=== PATIENT | male | born 1970 | race Caucasian/White ===

== ENCOUNTER 2020-05-16 09:12 | Emergency (ER) | payer OTHER, SELFPAY ==
[2020-05-16 09:13] VITALS: BP 140/74; PULSE 73; RESP 18; TEMP 36.6; O2SAT 99; BMI 23.5
--- NOTE | 2020-05-16 09:33 | ED.VIS.GEN ---
History of Present Illness Chief Complaint: Wound Check Narrative: This patient is a 50-year-old male who presents with rectal bleeding. He noticed a hard painful lump earlier this week about 5 days ago. He notes that he sits and travels a lot. He does have a history of prior hemorrhoids. No prior surgeries. Yesterday while he was sitting he developed spontaneous bleeding enough that he saturated through his underwear and shorts. This happened again today enough that he bled through his were closed. He complains of pain but really only with palpation. No abdominal pain no fever no nausea vomiting or diarrhea. Past Medical History - Allergies and Home Meds Allergies/Adverse Reactions: Allergies No Known Allergies Allergy (Verified 05/16/20 09:15) Primary Care Physician: [facility],[place] [Primary Care Provider] - Past Medical History: None - Family History Maternal Family History: Reports: No pertinent history Paternal Family History: Reports: No pertinent history Review of Systems All systems negative except as indicated General: Denies: Fever Eyes: Denies: Visual changes - bilaterally ENT: Denies: Bilateral ear pain Cardiovascular: Denies: Chest pain Respiratory: Denies: Dyspnea Gastrointestinal: Reports: Hematochezia. Denies: Vomiting, Diarrhea Musculoskeletal: Denies: Myalgias, Arthralgias Skin: Denies: Rash Neurological: Denies: Headache Hematologic: Denies: Easy bruising Allergy: Denies: Uticaria Physical Exam Vital Signs/Narrative: Vital Signs Temp Pulse Resp BP Pulse Ox 05/16/20 09:13 97.9 F 73 18 140/74 H 99 Inital Vital Signs reviewed: Yes General: Well nourished Head: Normocephalic Eyes: EOMI ENT: Moist mucous membranes Neck: Supple Cardiovascular: Regular rate Respiratory: No distress Abdomen: Soft, Nontender, Nondistended Rectal: - - Patient appears to have a thrombosed external hemorrhoid which is exquisitely tender to the touch. He also has some bright red blood around the anus. Unable to tolerate rectal exam. Skin: Normal color Neurological: Alert Psychological: Normal affect Diagnostic/Tx/Re-eval - Medical Decision Making I spoke to Dr. Fox who is on-call for general surgery. He did send his physician offset assistant press operator who evaluated patient here in the emergency department. They did perform an I&D of the thrombosed hemorrhoid. Patient was given Zofran and Tiona here for pain and nausea as well as prescription for the same and he was told by general surgery to follow-up with Dr. Fox on Wednesday. Patient discharged. ED Disposition - Plan for ED Patient: Disposition: Home or Assisted Living Diagnosis: Thrombosed external hemorrhoid Instructions: Thrombosed Hemorrhoids Prescriptions: Hydrocodone Bitart/Apap 5-325 [Tiona 5MG-325MG] 1 tab PO Q6H PRN PRN 3 Days #12 tab PRN Reason: Pain Prescription Printed Ondansetron [Zofran Odt] 4 mg PO Q8H PRN PRN #10 tab PRN Reason: Nausea Prescription Printed [facility] [[facility] Provider] - Juan Fox MD [STAFF PHYSICIAN] -
--- NOTE | 2020-05-16 12:11 | PCM.HP.STD ---
Problem List (1) Thrombosed external hemorrhoid Status: Acute History of Present Illness Date of Admission: 05/16/20 Chief Complaint: Anal pain and bleeding The patient is a 50 year old M who presented with 4 day history of anal pain and bleeding. He noted on Wednesday that the hemorrhoid had drained blood. He performed a sitz bath with Epsom salts Wednesday evening and Wednesday he noted more bleeding. Patient denies previous thrombosed hemorrhoid. He denies history of constipation or diarrhea. He notes riding a motorcycle frequently. He denies trauma to the area. Past Medical History Allergies No Known Allergies Allergy (Verified 05/16/20 09:15) Home Medications: Ambulatory Orders Medication Instructions Recorded NK 05/16/20 Surgical History: noncontributory Psychiatric History: Anxiety Lives: Spouse/ Significant Other Smoking Status: Current every day smoker - *Family History Maternal History Items: No pertinent history Paternal History Items: No pertinent history Review of Systems Constitutional: Denies: Chills, Fever, Weight Change HEENT: Denies: Head Aches, Sinus Congestion, Sinus Drainage Cardiovascular: Denies: Chest Pain, Palpitations Respiratory: Denies: Cough, Shortness of breath at rest, Sputum production Gastrointestinal: Reports: Hematochezia. Denies: Abdominal Pain, Constipation, Diarrhea, Dyspepsia, Hematemesis, Nausea, Melena, Vomiting Genitourinary: Denies: Dysuria Musculoskeletal: Denies: Joint Pain, Joint Tenderness Skin: Denies: Rash, Wounds Neurological: Denies: Numbness, Tingling, Focal weakness Psychiatric: Denies: Anxiety, Depression, Homicidal Ideations, Suicidal Ideations Hematologic/ Lymphatic: Denies: Easy Bruising, Easy Bleeding VTE Information - Inpt Only VTE Present on Admission: No Objective: Procedure note Procedure: Incision and Drainage of thrombosed hemorrhoid Permit: Procedure, benefits, risks (include those of bleeding, infection, injury, anesthesia, and allergic reaction), and alternatives explained to the patient who voiced understanding of the information. Their questions were sought and answered. Patient agreed to proceed with the incision and drainage of thrombosed hemorrhoid. Indication: Thrombosed hemorrhoid Physician: Marti Posey PA-C Description: Area prepped with chlorhexidine and draped in a sterile fashion. Local anesthetic administered with 7 cc of 1% lidocaine. A linear incision was made and a moderate amount of clot was removed. Cavity was probed to remove any further clots. Surrounding area was cleansed with normal saline and gauze dressing and maxi pad was provided. Patient tolerated the procedure well. Complications: None Disposition: Patient alert and oriented. Patient tolerated the procedure well. - Physical Exam Vitals/I&O's: Vital Signs Temp Pulse Resp BP Pulse Ox 97.9 F 73 18 140/74 H 99 05/16/20 09:13 05/16/20 09:13 05/16/20 09:13 05/16/20 09:13 05/16/20 09:13 Oxygen Delivery Method Room Air Weight: 150 lb Body Mass Index (BMI) 23.5 General: Alert, Oriented x3, Cooperative HEENT: Atraumatic, PERRLA, EOMI, Normocephalic Neck: Supple, No JVD, Negative Carotid Bruits Lungs: Clear to auscultation, Normal air movement Cardiovascular: Regular rate, No murmurs Abdomen: Bowel Sounds Present, Soft, Non Tender Extremities: No edema, Capillary Refill Less than 3 Seconds Skin: - - Notable left lateral external thrombosed hemorrhoid Musculoskeletal: No Tenderness to Palpation of Joints or Extremities Neurological: Neuro grossly intact Psych/Mental Status: Normal Affect, Appropriate Assessment/Plan All Active Problems Thrombosed external hemorrhoid (Acute) Impression: Thrombosed hemorrhoid Plan: Incision and evacuation performed at bedside. Recommend sitz bathes twice daily with or without epsom salts. Recommend maxi pad for dressing and changing often for the next 24 hours. If pain resumes or a lump is felt again, patient is to contact our office for follow. Patient has had the opportunity to ask and have questions answered. Patient verbally understands and agrees with the plan. Patient may return to work tomorrow. Follow-up with our office on Wednesday via virtual visit. Thank you for allowing us to participate in this patient's care. Office Visits / Consults: [id number] OP Consult L2 - Thrombosed hemorrhoid procedure
--- NOTE | 2020-05-16 12:26 | DCINST_ITS ---
Discharge Diet: No Restrictions Discharge Activity: No Restrictions, May Drive, May Shower Call your doctor if your incision/area has: Increased Pain/ Swelling Cleanse incision/area with: Soap & Water Additional Instructions: Recommend sitz bathes twice a day for 10-15 minutes each time May take ibuprofen or tylenol as needed for pain/discomfort Recommend changing pads frequently May return to work tomorrow There is also a possibility that your hemorrhoid may return Recommend keeping stools nice and soft until hemorrhoid is healed Allergies/Adverse Reactions: Allergies No Known Allergies Allergy (Verified 05/16/20 09:15) Medications to take at Discharge NK 05/16/20 Primary Care Physician: [facility],[place] [Primary Care Provider] - Test Results: Test results from this visit will be discussed in further detail at your follow- up appointment, if applicable. Please Follow Up With: Marti Posey, DEMETRIS - [phone] When: Wednesday; please call for virtual visit Proposed Discharge Date: 05/16/20
[2020-05-16] MEDS: HYDROcodone Bitartrate/Apap 5/325 Tablet PO (13:08)
[2020-05-16] MEDS: Ondansetron ODT 4 MG Tablet PO (13:09)
[2020-05-16 13:13] VITALS: BP 158/64; PULSE 74; RESP 16; O2SAT 99
== END 2020-05-16 13:28 | disposition home or self-care (01) ==
PROVIDERS: Emergency Provider Emergency Medicine
DX: K64.5 Perianal venous thrombosis (principal)
CPT/HCPCS: 46083; 99281

== ENCOUNTER 2020-10-25 14:10 | Outpatient (RCR) | payer OTHER, SELFPAY | END 2020-12-31 23:59 | LOC: IMMUN 14:10 | PROVIDERS: Visit Provider Family Medicine | DX: Z23 Encounter for immunization (principal) | CPT/HCPCS: 0001A; 0002A; 91300 ==

== ENCOUNTER 2021-01-05 09:53 | Emergency (ER) | payer OTHER, SELFPAY ==
[2021-01-05 09:54] VITALS: BP 140/78; PULSE 70; RESP 18; TEMP 36.6; O2SAT 95; BMI 25.6
--- NOTE | 2021-01-05 10:32 | EX.ED.DYSGE1 ---
HPI History of Present Illness Chief Complaint: GI Bleed Informant: patient Narrative Narrative: Patient is a 50-year-old previously healthy male who presents to the emergency department for rectal bleeding. He has a history of hemorrhoids. He states he first noticed this 1 week ago. Started bleeding over the past 4 days. He was at an outside emergency department yesterday and prescribed Anusol and Colace. He has not filled this prescription yet. He states he has been using sitz bath as well as Preparation H which has not been giving significant relief. It is tender. He states he does a lot of sitting and traveling for work. He is supposed to leave tomorrow for another trip. He denies any symptoms of anemia including any lightheadedness, chest pain, shortness of breath. No exertional dyspnea. He denies any fevers or chills. No abdominal pain. Denies straining to have bowel movements. Prior similar symptoms: Yes PFSH PFSH Home Medications ondansetron 4 mg PO Q8H PRN PRN #10 tab 05/16/20 [Rx Last Taken Unknown] Allergy/AdvReac Type Severity Reaction Status Date / Time No Known Allergies Allergy Verified 01/05/21 09:54 Social History Smoking Status: Current every day smoker tobacco type: cigarettes ROS ROS ED Constitutional Constitutional ED: Denies chills or fever(s) Eyes Eyes: Denies change in vision ENT ENT ED: Denies epistaxis or rhinorrhea Cardiovascular Cardiovascular: Denies chest pain or palpitations Respiratory/Chest Respiratory/Chest: Denies cough, dyspnea or dyspnea on exertion Gastrointestinal Gastrointestinal: Reports hemorrhoids; Denies abdominal pain, diarrhea, melena, nausea or vomiting Genitourinary Genitourinary ED: Denies dysuria, hematuria or urinary frequency Musculoskeletal Musculoskeletal: Denies back pain or neck pain Neurologic Neurologic: Denies dizziness, headache(s) or weakness EXAM Physical Exam Const Vital Signs: 01/05/21 09:54 Temperature 97.8 F Temperature Source Temporal Pulse Rate 70 Respiratory Rate 18 Blood Pressure 140/78 H Blood Pressure Mean 98 Pulse Ox 95 Oxygen Delivery Method Room Air Positive well nourished and well developed General Appearance ED: well developed and NAD HEENT Reports normocephalic, head/scalp atraumatic and moist mucous membranes Eyes PERRL and EOMs intact bilaterally Neck no lymphadenopathy and supple General: Negative for tenderness Chest Wall inspection of chest normal Resp normal respiratory effort and clear to auscultation bilaterally Auscultation: Negative for rales, rhonchi or wheezes Cardio regular rate, regular rhythm and no murmurs GI normal to inspection, nondistended, normoactive bowel sounds and non-tender GI Narrative: External hemorrhoid present. There is some blood present but no active bleeding. Does appear to be partially thrombosed but not significantly engorged and swollen. No overlying skin changes. Palpation: soft; Negative for guarding or rebound tenderness present Back/Spine no CVA tenderness Extremity normal to inspection General Extremety ED: Negative for edema or tenderness General Extremity: Negative for edema Neuro no sensory deficits noted Sensorium / Orientation: alert Motor Exam: strength 5/5 throughout Psych mental status grossly normal Skin no rashes or lesions noted MDM MDM MDM Narrative Medical decision making narrative: Patient presents to the ED for rectal bleeding. He does have a hemorrhoid on exam. He has had this issue before in the past. He was seen at outside ED and prescribed Anusol. I did advise for him to start using this as well as the Colace. He was given referral for surgery. Patient otherwise denies any symptoms of anemia. At this time I do not think I&D would be beneficial here in the emergency department. We will have him follow-up with the surgeon. Return precautions are reviewed. He understands and is agreeable this plan. Discharged home in stable condition. Return precautions reviewed. Discharge Plan Triage Chief Complaint: GI Bleed ED Provider: Antonio Anton Dx/Rx/DC Orders Clinical Impression: Hemorrhoids Instructions: ED Hemorrhoids Prescriptions: No Action ondansetron 4 MG tablet 4 mg PO Q8H PRN PRN (Reason: Nausea) Qty: 10 RF: 0 [facility] [[facility]] - Activity Restrictions/Additional Instructions: Please follow-up with the general surgeon that you were referred to from [place]. Disposition Disposition: Home, self care
== END 2021-01-05 10:46 | disposition home or self-care (01) ==
LOC: ED 10:43
PROVIDERS: Emergency Provider Emergency Medicine
DX: K64.9 Unspecified hemorrhoids (principal); F17.210 Nicotine dependence, cigarettes, uncomplicated
CPT/HCPCS: 99282

== ENCOUNTER 2021-02-22 20:44 | Emergency (ER) | payer OTHER, SELFPAY ==
[2021-02-22 20:45] VITALS: BP 120/79; PULSE 68; RESP 15; TEMP 36.3; O2SAT 98; BMI 25.6
[2021-02-22] MEDS: Lidocaine 1% (20 ml mdv) 20 ML Vial INFILT (21:10)
--- NOTE | 2021-02-22 21:22 | EX.ED.DYSGE1 ---
HPI History of Present Illness Chief Complaint: Abscess Informant: patient Narrative Narrative: 51-year-old male presents for the evaluation of a infected cyst. He notes it behind the left ear. He has had this before and 15 years ago it needed to be drained. He had a body from [employer] drain it for him. He states there is been a hard circular knot there since then but it recently started swelling and is causing pain. PFSH PFSH Home Medications ondansetron 4 mg PO Q8H PRN PRN #10 tab 05/16/20 [Rx Last Taken Unknown] cephalexin 500 mg PO Q6 #28 capsule 02/22/21 [Rx Last Taken Unknown] Allergy/AdvReac Type Severity Reaction Status Date / Time No Known Allergies Allergy Verified 02/22/21 20:49 Social History (Updated 02/22/21 @ 21:[address] Juan Priest, DO) Smoking Status: Current every day smoker tobacco type: cigarettes substance use type: does not use ROS ROS ED Constitutional Constitutional ED: Denies chills or weight loss Eyes Eyes: Denies change in vision or diplopia ENT ENT ED: Denies ear pain, rhinorrhea or sore throat Cardiovascular Cardiovascular: Denies chest pain, orthopnea, palpitations or racing heartbeat Respiratory/Chest Respiratory/Chest: Denies cough, dyspnea or orthopnea Gastrointestinal Gastrointestinal: Denies abdominal pain, diarrhea, nausea or vomiting Genitourinary Genitourinary ED: Denies dysuria, hematuria or urinary frequency Musculoskeletal Musculoskeletal: Denies arthralgias or myalgias Integumentary Reports abscess; Denies rash Neurologic Neurologic: Denies headache(s) or weakness Psychiatric Psychiatric: Denies anxiety, depression, suicidal ideation or suicidal thoughts Endocrine Endocrinology: Denies polydipsia, polyphagia or polyuria Allergic/Immunologic Allergic/Immunologic ED: Denies mouth swelling, tongue swelling or urticaria EXAM Physical Exam Const Vital Signs: 02/22/21 20:45 Temperature 97.4 F L Temperature Source Temporal Pulse Rate 68 Respiratory Rate 15 Blood Pressure 120/79 Blood Pressure Mean 92 Pulse Ox 98 Oxygen Delivery Method Room Air Positive well nourished and well developed General Appearance ED: well developed HEENT Reports normocephalic, head/scalp atraumatic and moist mucous membranes HEENT Narrative: There appears to be an infected sebaceous cyst posterior auricular area. This measures about 1 cm x 1 cm Eyes PERRL and EOMs intact bilaterally Neck no lymphadenopathy, supple and no JVD Resp normal respiratory effort and clear to auscultation bilaterally Cardio regular rate, regular rhythm and no murmurs GI normal to inspection, nondistended, normoactive bowel sounds and non-tender Palpation: soft Back/Spine no CVA tenderness and normal ROM Extremity normal to inspection General Extremety ED: Negative for edema General Extremity: Negative for edema Neuro oriented x3 and CN's II-XII intact bilaterally Sensorium / Orientation: alert Motor Exam: strength 5/5 throughout Psych mental status grossly normal Mood & Affect: Negative for depressed or tearful Skin no rashes or lesions noted and no wounds MDM MDM MDM Narrative Medical decision making narrative: The cyst was locally anesthetized using 1% lidocaine. A cruciate incision was made. This was able to express a significant amount of thick purulence. Due to the size of it and the lack of depth there is not really a way to pack it successfully. He will be started on Keflex. Patient was advised that when his symptoms have resolved and if he feels this small cyst present before becomes infected again he may talk with surgery about having it removed Discharge Plan Triage Chief Complaint: Abscess ED Provider: Juan Priest Dx/Rx/DC Orders Clinical Impression: Infected sebaceous cyst Instructions: Epidermoid Cyst Infect I and D Prescriptions: New cephalexin [cephalexin] 500 MG capsule 500 mg PO Q6 Qty: 28 RF: 0 No Action ondansetron 4 MG tablet 4 mg PO Q8H PRN PRN (Reason: Nausea) Qty: 10 RF: 0 [facility] Care Provider: [facility] Referrals: Jairo Owen MD [STAFF PHYSICIAN] - As Needed [facility] [Primary Care Provider] - Disposition Disposition: Home, Self Care
[2021-02-22] MEDS: Cephalexin 250 MG Capsule 500 MG PO (21:44)
== END 2021-02-22 21:50 | disposition home or self-care (01) ==
PROVIDERS: Emergency Provider Emergency Medicine
DX: L72.3 Sebaceous cyst (principal); L08.9 Local infection of the skin and subcutaneous tissue, unspecified; F17.210 Nicotine dependence, cigarettes, uncomplicated
CPT/HCPCS: 10060; 99283

== ENCOUNTER → 2022-01-20 | Outpatient (CLI) | payer OTHER, SELFPAY ==
--- NOTE | 2022-01-20 06:42 | EKG12_ITS ---
Test Reason : SOB,ISCHEMIC DISEASE Blood Pressure : / mmHG Vent. Rate : 061 BPM Atrial Rate : 061 BPM P-R Int : 148 ms QRS Dur : 090 ms QT Int : 408 ms P-R-T Axes : 054 046 055 degrees QTc Int : 410 ms Normal sinus rhythm Normal ECG Confirmed by STEVAN WATERS, CHUCHO ([id number]), editor at large RENATA HAMM ([id number]) on 01/21/2022 8:51:42 AM Referred By: WILVER EDWARD Confirmed By:CHUCHO CALLES MD
--- NOTE | 2022-01-21 09:59 | PFT ---
INTRODUCTION: The patient is a 51-year-old male that presents for pulmonary function studies secondary to a diagnosis of shortness of breath. Respiratory therapy reported good patient effort. Bronchodilators were used during testing. INTERPRETATION: Forced expiration spirometry demonstrates no evidence of a large airways obstructive ventilatory defect. There was no significant response to aerosolized bronchodilators. Spirograms are of good quality and plateau normally. Body plethysmography was performed and reveals lung volumes to be within normal limits. Diffusing capacity by single breath CO is also within normal limits. IMPRESSION: Grossly normal pulmonary function studies.
== END | disposition home or self-care (01) ==
LOC: PSN 06:36
DX: I25.9 Chronic ischemic heart disease, unspecified (principal); R06.02 Shortness of breath
CPT/HCPCS: 93005; 94060; 94726; 94729

== ENCOUNTER → 2022-01-22 | Outpatient (CLI) | payer OTHER, SELFPAY ==
--- NOTE | 2022-01-22 07:23 | ECHOD_ITS ---
Reason For Study: SOB Procedure This was a 2D Doppler, Color Flow transthoracic echocardiogram. The exam was of adequate technical quality. Exam performed in department. Left Ventricle Normal LV size. Left ventricular systolic function is normal. The estimated ejection fraction is 70 %. No evidence for diastolic dysfunction. No regional wall motion abnormalities noted. Right Ventricle Normal RV size. Normal systolic function. Atria Normal left atrium. Normal right atrium. No doppler evidence for ASD. Mitral Valve There is no mitral annular calcification. Normal mitral valve. Trivial mitral valve insufficiency. Tricuspid Valve Normal tricuspid valve. Trivial tricuspid valve insufficiency. Unable to estimate RV systolic pressure due to insufficient tricuspid regurgitant envelope. Aortic Valve Trisinus/trileaflet aortic valve. Mild focal aortic valve calcification. Pulmonic Valve The pulmonic valve is not well visualized. Trivial pulmonic valve insufficiency. Great Vessels Normal sized aortic root. Pericardium/Pleural No pericardial effusion. MMode/2D Measurements & Calculations LVIDd: 4.6 cm IVSd: 1.1 cm Ao root diam: 2.5 cm LVIDs: 2.8 cm LVPWd: 1.2 cm RVDd: 2.5 cm FS: 38.6 % LAV(MOD-sp4): 26.9 ml LVAd ap4: 25.6 cm2 SV(MOD-sp4): 48.6 ml LVLd ap4: 8.1 cm EDV(MOD-sp4): 67.1 ml EDV(sp4-el): 68.2 ml LVAs ap4: 10.9 cm2 LVLs ap4: 6.0 cm ESV(MOD-sp4): 18.5 ml ESV(sp4-el): 16.8 ml EF(MOD-sp4): 72.4 % EF(sp4-el): 75.4 % SV(sp4-el): 51.4 ml LA A4 area: 12.7 cm2 LA dimension(2D): 3.1 cm RA A4 area: 12.9 cm2 Doppler Measurements & Calculations MV E max jorge: 66.3 cm/sec Lat Peak E' Jorge: 11.9 cm/sec Med Peak E' Jorge: 7.6 cm/sec MV A max jorge: 50.1 cm/sec E/E' lat: 5.6 E/E' med: 8.7 MV E/A: 1.3 Ao V2 max: 135.1 cm/sec LV V1 max: 113.8 cm/sec PA V2 max: 114.6 cm/sec Ao max P.3 mmHg LV V1 max P.2 mmHg ECHO/Echo Complete Interpretation Summary Left ventricular systolic function is normal. The estimated ejection fraction is 70 %. Trivial mitral valve insufficiency. Trivial tricuspid valve insufficiency. Mild focal aortic valve calcification. Trivial pulmonic valve insufficiency. Unable to estimate RV systolic pressure due to insufficient tricuspid regurgita nt envelope. No evidence for diastolic dysfunction. Ordering Physician: WILVER EDWARD Referring Physician: WILVER EDWARD Performed By: Shelley Redmond RCS
== END | disposition home or self-care (01) ==
LOC: CVS 07:19
DX: R06.02 Shortness of breath (principal); I25.9 Chronic ischemic heart disease, unspecified
CPT/HCPCS: 93306

== ENCOUNTER 2023-11-24 10:55 | Emergency (ER) | payer OTHER, SELFPAY ==
[2023-11-24 10:55] VITALS: BP 149/85; PULSE 70; RESP 18; TEMP 36.6; O2SAT 98; BMI 27.3
--- NOTE | 2023-11-24 11:15 | EDS_ITS ---
HPI History of Present Illness Chief Complaint: Shortness of Breath [facility] Medical History (Updated 11/24/23 @ 11:53 by Yanni Liu) Anxiety Hyperlipemia Home Medications ondansetron 4 mg disintegrating tablet 4 mg PO Q8H PRN PRN Nausea #10 tabs 05/16/20 [Rx Last Taken Unknown] cephalexin 500 mg capsule 500 mg PO Q6 #28 CAPSULES 02/22/21 [Rx Last Taken Unknown] Allergy/AdvReac Type Severity Reaction Status Date / Time No Known Allergies Allergy Verified 11/24/23 10:58 Family History (Updated 11/24/23 @ 11:54 by Yanni Liu) Mother Heart disease Social History (Updated 11/24/23 @ 11:54 by Yanni Liu) household members: family housing: house current occupational status: employed Smoking Status: Current every day smoker tobacco type: cigarettes substance use type: does not use EXAM Physical Exam Const Vital Signs: 11/24/23 10:55 11/24/23 11:55 Temperature 97.8 F Temperature Source Temporal Pulse Rate 70 Respiratory Rate 18 Respiratory Effort Normal Non-Labored Respiratory Pattern Normal Blood Pressure 149/85 H Blood Pressure Mean 106 Pulse Ox 98 Oxygen Delivery Method Room Air [facility] Lab Data Labs: Laboratory Results - last 24 hr 11/24/23 12:05 WBC 9.6 RBC 5.47 Hgb 16.2 Hct 47.8 MCV 87.4 MCH 29.6 MCHC 33.9 RDW Std Deviation 40.1 RDW Coeff of Vane 12.6 Plt Count 258 MPV 9.1 Immature Gran % (Auto) 0.500 Neut % (Auto) 71.8 H Lymph % (Auto) 22.1 [place] % (Auto) 5.1 Eos % (Auto) 0.2 Baso % (Auto) 0.3 Absolute Neuts (auto) 6.9 Absolute Lymphs (auto) 2.11 Nucleated RBC % 0 D-Dimer Quant (PE/DVT) < 0.27 L EKG Initial EKG: Attestation: I personally reviewed and interpreted this EKG as follows: Interpretation: Sinus Rhythm (With occasional PACs with a rate of 61) and No Acute Injury Pattern Comments: EKG was obtained. On my independent interpretation, it showed a normal sinus rhythm with occasional PACs with a rate of 61. [place] interval, QRS interval, and QTc intervals were all normal. [place] was normal. There are no acute ST or T wave changes. Prior EKG tracings: available for review Prior: Unchanged (01/20/2022.) Discharge Plan Triage Chief Complaint: Shortness of Breath ED Provider: Thompson Nino Dx/Rx/DC Orders Prescriptions: No Action ondansetron 4 MG tablet 4 mg PO Q8H PRN PRN (Reason: Nausea) Qty: 10 0RF cephalexin [cephalexin] 500 MG capsule 500 mg PO Q6 Qty: 28 0RF Primary Care Provider: Ji Ellison Took Referrals: [facility] [STAFF PHYSICIAN] -
--- NOTE | 2023-11-24 11:15 | ED.VIS.DYS ---
HPI History of Present Illness Chief Complaint: Shortness of Breath Informant: patient Onset/Context/Timing Onset: Days (5) Context: sudden Timing: Intermittent Quality: Positive for Dyspnea on exertion Worsened by: Exertion Relieved by: Nothing Associated Symptoms cough and post nasal drip; Negative for rhinorrhea, ear pain, fever, sore throat, chills, sweats, clear sputum, white sputum, yellow sputum or green sputum Chest Pain: Positive for Tightness Narrative Narrative: Patient presents with shortness of breath that has been getting worse over the past 5 days. Patient states it is worse with any exertion. Patient states it is better when he is able to sit up. Patient states he has been having some postnasal drainage. Patient admits to a cough but denies any sputum production. Patient denies any fevers or chills. Patient states he also has some tightness through his chest. Patient denies any sick contacts. Patient denies any nausea or vomiting. PE Risk Factors: Negative for Cancer, OCP + Smoking + > 35, Prior DVT or PE, Recent immobilization, Recent surgery or Recent travel [facility] Medical History (Updated 11/24/23 @ 14:[address] Thompson Nino DO) Anxiety Hyperlipemia Allergy/AdvReac Type Severity Reaction Status Date / Time No Known Allergies Allergy Verified 11/24/23 10:58 Family History (Updated 11/24/23 @ 11:54 by Yanni Liu) Mother Heart disease Surgical History (Updated 11/24/23 @ 14:[address] Thompson Nino DO) Hx of repair of rotator cuff Social History household members: family housing: house current occupational status: employed Smoking Status: Current every day smoker tobacco type: cigarettes substance use type: does not use ROS ROS ED Constitutional Constitutional ED: Denies chills or fever(s) Eyes Eyes: Denies blurry vision or change in vision ENT ENT ED: Denies rhinorrhea or sore throat Cardiovascular Cardiovascular: Reports chest pain; Denies palpitations Respiratory/Chest Respiratory/Chest: Reports dyspnea; Denies cough Gastrointestinal Gastrointestinal: Denies nausea or vomiting Genitourinary Genitourinary ED: Denies dysuria or hematuria Musculoskeletal Musculoskeletal: Reports back pain and neck pain Integumentary Denies abscess or rash Neurologic Neurologic: Denies headache(s) or weakness Allergic/Immunologic Allergic/Immunologic ED: Denies mouth swelling or urticaria EXAM Physical Exam Const Vital Signs: 11/24/23 10:55 11/24/23 11:55 Temperature 97.8 F Temperature Source Temporal Pulse Rate 70 Respiratory Rate 18 Respiratory Effort Normal Non-Labored Respiratory Pattern Normal Blood Pressure 149/85 H Blood Pressure Mean 106 Pulse Ox 98 Oxygen Delivery Method Room Air Positive well nourished and well developed General Appearance ED: well developed and NAD HEENT Reports moist mucous membranes Neck supple and no JVD Resp normal respiratory effort and clear to auscultation bilaterally Cardio regular rate and regular rhythm GI non-tender and non-distended Palpation: soft Extremity normal to inspection General Extremety ED: Negative for edema or tenderness General Extremity: Negative for edema Neuro oriented x3, CN's II-XII intact bilaterally and no sensory deficits noted [place] Com[place] Scale: document GCS findings Spontaneous Obeys Commands Oriented 15 Sensorium / Orientation: alert Speech: speech normal Motor Exam: strength 5/5 throughout Psych mental status grossly normal Skin no wounds MDM MDM MDM Narrative Medical decision making narrative: Differential diagnosis includes pulmonary embolism, pneumonia, viral illness, cardiac dysrhythmia, cardiac ischemia, and anxiety. EKG will be obtained to assess for cardiac dysrhythmia and cardiac ischemia. CBC will be obtained to assess for leukocytosis and anemia. Basic metabolic profile will be obtained to assess for electrolyte abnormality and renal function. D-dimer will be obtained to assess for pulmonary embolism. COVID-19, influenza, and RSV PCR will be obtained to assess for viral illness. Chest x-ray will be obtained to assess for pneumonia. Lab Data Attestation: I reviewed the patient's lab results. Lab results narrative: CBC was reviewed and was within normal limits. Basic metabolic profile was reviewed and was within normal limits with the exception of an elevated glucose of 203. D-dimer was reviewed and was normal at less than 0.27. High-sensitivity troponin was reviewed and was normal at 9. Labs: Laboratory Results - last 24 hr 11/24/23 12:05 WBC 9.6 RBC 5.47 Hgb 16.2 Hct 47.8 MCV 87.4 MCH 29.6 MCHC 33.9 RDW Std Deviation 40.1 RDW Coeff of Vane 12.6 Plt Count 258 MPV 9.1 Immature Gran % (Auto) 0.500 Neut % (Auto) 71.8 H Lymph % (Auto) 22.1 Major % (Auto) 5.1 Eos % (Auto) 0.2 Baso % (Auto) 0.3 Absolute Neuts (auto) 6.9 Absolute Lymphs (auto) 2.11 Nucleated RBC % 0 D-Dimer Quant (PE/DVT) < 0.27 L Radiography Chest X-Ray - ED: 2 View, Read by ED Physician, Read by Radiologist and No Acute Disease Diagnostic Testing: PA and lateral chest x-ray was obtained. There are 2 views. On my independent interpretation, lung [place] are clear. There is normal cardiac silhouette. Bony thorax is normal. There is no acute process noted. Radiologist also interpreted the x-ray and agrees. EKG Initial EKG: Attestation: I personally reviewed and interpreted this EKG as follows: Interpretation: Sinus Rhythm (With occasional PACs with a rate of 61) and No Acute Injury Pattern Comments: EKG was obtained. On my independent interpretation, it showed a normal sinus rhythm with occasional PACs with a rate of 61. MS interval, QRS interval, and QTc intervals were all normal. [place] was normal. There are no acute ST or T wave changes. Prior EKG tracings: available for review Prior: Unchanged (01/20/2022.) Treatment and Re-Evaluation :: Patient was advised of his findings. Patient was resting comfortably on reevaluation. Patient was instructed to follow-up with his primary care physician in 5 to 7 days for further evaluation. Patient was instructed to return if worse in any way. Patient understood and was agreeable with the plan. All questions were answered. Discharge Plan Triage Chief Complaint: Shortness of Breath ED Provider: Thompson Nino Dx/Rx/DC Orders Clinical Impression: Dyspnea, Hyperglycemia Instructions: ED Dyspnea, ED Hyperglycemia New Poss Diabetes Primary Care Provider: Ji Ellison [facility]errals[facility] [[facility]FF [facility]YSICIAN] - 5-7 Days Activity Restrictions/Additional Instructions: Your blood sugar today was elevated at 203. Continue to monitor this with your primary care physician. This could indicate new onset diabetes. Disposition Disposition: Home, Self Care
--- NOTE | 2023-11-24 11:49 | EKG12_ITS ---
Test Reason : SOB/CP Blood Pressure : / mmHG Vent. Rate : 061 BPM Atrial Rate : 061 BPM P-R Int : 128 ms QRS Dur : 086 ms QT Int : 412 ms P-R-T Axes : 048 031 061 degrees QTc Int : 414 ms Sinus rhythm with Premature atrial complexes Otherwise normal ECG Confirmed by MAGNUS WATERS, LILI ([id number]), associate entertainment editor NORRIS CARREON ([id number]) on 11/25/2023 11:34:11 AM Referred By: ES/ Confirmed By:LILI AGUDELO MD
[2023-11-24 11:55] VITALS: O2SAT 98
[2023-11-24 12:21] LABS: Absolute Lymphocyte Count 2.11 X10^3/uL (0.83-4.51); Absolute Neutrophil Count 6.9 X10^3/uL (2.0-7.7); Basophil# 0.03 X10^3/uL; Basophil% 0.3 % (0-1); Eosinophil# 0.02 X10^3/uL; Eosinophils% 0.2 % (0-5); Hematocrit 47.8 % (40-54); Hemoglobin 16.2 g/dL (13.0-16.5); Lymphocyte # 2.11 X10^3/ul (0.83-4.51); Lymphocyte % 22.1 % (19-41); Mean Corp Hgb Conc 33.9 g/dL (32-36); Mean Corpuscular Hgb 29.6 pg (27.0-32.0); Mean Corpuscular Volume 87.4 fL (80-94); Mean Platelet Vol. 9.1 fl (6.2-12.0); Monocyte# 0.49 X10^3/uL; Monocyte% 5.1 % (0-10); NRBC Flagged by Analyzer 0 % (0-5); Neutrophil # 6.86 X10^3/uL (2.7-7.7); Neutrophil % 71.8 % (47-70); Platelet Count 258 K/mm3 (150-450); RBC Distribution Width CV 12.6 % (11.6-14.6); RBC Distribution Width SD 40.1 fl (35.1-43.9); Red Blood Count 5.47 M/mm3 (4.6-6.2); White Blood Count 9.6 K/mm3 (4.4-11.0)
[2023-11-24 12:34] LABS: D-Dimer Quantitative (DVT/PE) < 0.27 FEU/ug/m (0.27-0.49)
[2023-11-24 12:55] VITALS: BP 117/74; PULSE 56; RESP 22
[2023-11-24 12:55] LABS: Anion Gap 5 (5-15); BUN 16 mg/dL (7-18); BUN/Creat Ratio 13.8 RATIO (10-20); Calcium,Total 8.9 mg/dL (8.5-10.1); Chloride 106 mmol/L (98-107); Creatinine, Serum 1.16 mg/dL (0.70-1.30); EST Glomerular Filtration Rate 70 mL/min (>60); Est Glom Filt Rate - Afr Amer 85 mL/min (>60); Estimated Creatinine Clearance 70.44 ml/min; Glucose 203 mg/dL (74-106); Potassium 3.9 mmol/L (3.5-5.1); Sodium Level 139 mmol/L (136-145); Troponin-I HS 9 pg/mL (3.0-78.0)
--- NOTE | 2023-11-24 13:10 | RAD_ITS ---
STUDY: X-RAY CHEST REASON FOR EXAM: Male, 53 years old. Dyspnea. TECHNIQUE: Frontal and lateral views of the chest. COMPARISON: None. FINDINGS: The lungs are clear and expanded. There is no demonstrated pleural abnormality. Normal size heart. Normal mediastinum and amanda. Normal visualized pulmonary arteries. Normal visualized aortic arch and descending thoracic aorta. Normal visualized thoracic spine. Normal visualized ribs, clavicles, and shoulders. No abnormality of the visualized soft tissue structures of the upper abdomen. RAD/Chest PA and Lateral IMPRESSION: Normal x-ray examination of the chest. Electronically Signed: Jose Love MD at 13:51 EDT ,
[2023-11-24 14:00] VITALS: BP 120/71; PULSE 58; RESP 18; O2SAT 97
[2023-11-24 15:17] VITALS: BP 129/84; PULSE 54; RESP 18; TEMP 36.5; O2SAT 97
== END 2023-11-24 15:18 | disposition home or self-care (01) ==
PROVIDERS: Emergency Provider Emergency Medicine; PCP Nurse Practitioner; Visit Provider Emergency Medicine
DX: R06.02 Shortness of breath (principal); R73.9 Hyperglycemia, unspecified; F17.210 Nicotine dependence, cigarettes, uncomplicated; E78.5 Hyperlipidemia, unspecified; R07.9 Chest pain, unspecified
CPT/HCPCS: 71046; 80048; 84484; 85025; 85379; 87631; 93005; 99284

== ENCOUNTER 2025-07-15 21:19 | Emergency (ER) | payer OTHER, SELFPAY ==
[2025-07-15 21:20] VITALS: BP 154/80; PULSE 67; RESP 18; TEMP 36.7; O2SAT 100; BMI 27.8
--- NOTE | 2025-07-15 21:31 | EKG12_ITS ---
Test Reason : CP Blood Pressure : */* mmHG Vent. Rate : 65 BPM Atrial Rate : 65 BPM P-R Int : 150 ms QRS Dur : 86 ms QT Int : 392 ms P-R-T Axes : 54 41 84 degrees QTcB Int : 407 ms Normal sinus rhythm Possible Inferior infarct , age undetermined Abnormal ECG Confirmed by Tremaine Negrete (Luli), map editor MARS LEUNG ([id number]) on 07/17/2025 11:26:38 AM Also confirmed by Tremaine Negrete ([id number]), map editor MARS LEUNG ([id number]) on 07/18/2025 10:53:19 AM Referred By: AUGUSTUS Confirmed By: Tremaine Negrete
--- NOTE | 2025-07-15 21:32 | ED.VIS.CHEST ---
HPI History of Present Illness Chief Complaint: Chest Pain Detail of Chief Complaint: Chest pain Informant: patient Narrative Narrative: Patient presents to the emergency department with complaint of chest pain that he has had for about a week off-and-on. Describes a dull ache in the left chest that does not seem to be exertional. Relatively continuously since around 540 this morning. No significant radiation of the pain into the arm or the neck or to the jaw. At times with standing he will feel lightheaded. [place] somewhat sweaty yesterday. Patient has no heart history. His mother had triple bypass surgery recently in her 80s. Patient is a smoker but quitting down to 3 cigarettes a day. Denies illicit drug use. Had surgery on his right shoulder in April. No recent travel. Increased stressors at home as they are currently buying a home and he has been under a lot of stress. Does have history of anxiety. Patient called the [facility] and was advised to come to the emergency department. [facility] Medical History (Updated 07/15/25 @ 22:[address] Latonya Acosta, DO) Hyperlipemia Anxiety Home Medications ?Medication ?Instructions ?Recorded ?Last Taken ?Type aspirin 81 mg capsule 81 mg PO DAILY 07/15/25 07/15/25 History fluoxetine 20 mg capsule 20 mg PO DAILY 07/15/25 07/14/25 History lorazepam 1 mg tablet (Ativan) 1 mg PO TID PRN anxiety #10 tabs 07/15/25 Unknown Rx pantoprazole 20 mg tablet,delayed 20 mg PO DAILY 07/15/25 07/14/25 History release rosuvastatin 20 mg tablet (Crestor) 20 mg PO DAILY 07/15/25 07/14/25 History Allergy/AdvReac Type Severity Reaction Status Date / Time No Known Allergies Allergy Verified 07/15/25 21:20 Family History Mother Heart disease Surgical History Hx of repair of rotator cuff Social History household members: family housing: house current occupational status: employed Smoking Status: Current every day smoker tobacco type: cigarettes substance use type: does not use ROS ROS ED Review of Systems ROS Unobtainable: other Constitutional Constitutional ED: Reports lethargy; Denies chills, fever(s), sweats or weight loss Eyes Eyes: Denies blurry vision, change in vision or diplopia ENT ENT ED: Denies rhinorrhea or sore throat Cardiovascular Cardiovascular: Reports chest pain; Denies orthopnea or racing heartbeat Respiratory/Chest Respiratory/Chest: Reports dyspnea; Denies cough, dyspnea on exertion, orthopnea or sputum Gastrointestinal Gastrointestinal: Denies abdominal pain, diarrhea, nausea or vomiting Genitourinary Genitourinary ED: Denies dysuria, hematuria or urinary frequency Musculoskeletal Musculoskeletal: Denies arthralgias, back pain, myalgias or neck pain Integumentary Denies abscess, Abrasions or rash Neurologic Neurologic: Denies headache(s) or weakness Psychiatric Psychiatric: Denies anxiety, depression or suicidal thoughts Endocrine Endocrinology: Denies polydipsia, polyphagia or polyuria Hematologic/Lymphatic Hematologic/Lymphatic: Denies easy bleeding, easy bruising or lymphadenopathy Allergic/Immunologic Allergic/Immunologic ED: Denies mouth swelling, tongue swelling or urticaria EXAM Physical Exam Const Vital Signs: 07/15/25 21:20 07/15/25 21:27 07/15/25 21:39 Temperature 98.1 F Temperature Source Oral Pulse Rate 67 Respiratory Rate 18 Respiratory Effort Normal Non-Labored Blood Pressure 154/80 H Blood Pressure Mean 104 Pulse Ox 100 Oxygen Delivery Method Room Air Positive well nourished and well developed General Appearance ED: well developed and NAD HEENT Reports TM's clear and moist mucous membranes normocephalic and atraumatic; Negative for trauma or tenderness Tympanic Membrane ED: Yes TM's clear Eyes PERRL and EOMs intact bilaterally General Eye ED: Negative for pale conjunctiva or scleral icterus Neck no lymphadenopathy, supple and no JVD General: Negative for tenderness Chest Wall inspection of chest normal and palpation of chest normal Chest: Negative for tenderness Resp normal respiratory effort and clear to auscultation bilaterally Effort and Inspection: Negative for respiratory distress or pain with movement Auscultation: Negative for rhonchi, wheezes or diminished lung sounds Cardio regular rate, regular rhythm, S1 normal heart sound, S2 normal heart sound and no murmurs Peripheral Pulses: pulses 2+ throughout GI normal to inspection, nondistended, normoactive bowel sounds, soft to palpation, non-tender, non-distended and no masses Back/Spine no CVA tenderness and no thoracic nor lumbar tenderness Extremity normal to inspection General Extremety ED: Negative for edema General Extremity: Negative for edema Neuro oriented x3, CN's II-XII intact bilaterally, no sensory deficits noted and gait normal Sensorium / Orientation: awake, alert, oriented to person, oriented to place and oriented to time Motor Exam: strength 5/5 throughout and strength abnormal Psych mental status grossly normal Skin no rashes or lesions noted and no wounds Heart Score History: Slightly/Non-Suspicious ECG: Normal Age: >45 - <65 years Risk Factors: 1 or 2 Risk Factors Troponin: </= Normal Limit Score: 2 MDM MDM MDM Narrative Medical decision making narrative: Patient presents with ongoing chest pain for over a week. It is not exertional. Does have history of anxiety and has had significant increase stressors of late. Patient had surgery in April on his right shoulder but no history of PE or DVT. IV line established on arrival. EKG obtained showed a sinus rhythm with rate of 66 bpm with old inferior infarct noted with with Q waves noted in leads to 3 and aVF. When compared with prior EKG from November 2023 there are no acute changes noted. CBC with differential today showed a white count of 9.9 with hemoglobin 15.8 and platelet count of 249. Chemistries unremarkable. BUN was 17 and creat 1.14. Troponin was 8. D-dimer was normal at less than 0.27. Chest x-ray was normal. Discussed results with patient. At this point his heart score is a 2 I have low suspicion for acute coronary syndrome. Will treat him with a milligram of Ativan. He states he had multiple panic attacks today. States he was just nervous and scared he has history of PTSD. [facility] He is advised to return if exertional symptoms, worsening pain, increasing shortness of breath, or condition worsen anyway Lab Data Attestation: I reviewed the patient's lab results. Labs: Laboratory Results - last 24 hr 07/15/25 21:34 WBC 9.9 RBC 5.31 Hgb 15.8 Hct 45.7 MCV 86.1 MCH 29.8 MCHC 34.6 RDW Std Deviation 38.8 RDW Coeff of Vane 12.3 Plt Count 249 MPV 8.7 Immature Gran % (Auto) 0.300 Neut % (Auto) 53.7 Lymph % (Auto) 37.7 [place] % (Auto) 6.1 Eos % (Auto) 1.7 Baso % (Auto) 0.5 Absolute Neuts (auto) 5.3 Absolute Lymphs (auto) 3.73 Nucleated RBC % 0 D-Dimer Quant (PE/DVT) < 0.27 L Sodium 139 Potassium 4.0 Chloride 104 Carbon Dioxide 22.7 Anion Gap 12 BUN 17 Creatinine 1.14 Estim Creat Clear Calc 76.29 Est GFR (MDRD) Non-Af 77 BUN/Creatinine Ratio 14.6 Glucose 152 H Calcium 9.0 Troponin T High Sens 8 Radiography Diagnostic Testin view chest x-ray obtained interpreted by myself as no evidence of infiltrate or pneumothorax or acute disease process. EKG Initial EKG: Attestation: I personally reviewed and interpreted this EKG as follows: Comments: Sinus rhythm with ventricular rate of 65 bpm with old inferior infarct Discharge Plan Triage Chief Complaint: Chest Pain ED Provider: Latonya Acosta Dx/Rx/DC Orders Clinical Impression: Chest pain, Anxiety Instructions: ED Anxiety Reaction, ED Chest Pain, Uncertain Cause Prescriptions: New lorazepam [Ativan] 1 mg tablet 1 mg PO TID PRN (Reason: anxiety) Qty: 10 0RF No Action pantoprazole 20 mg tablet,delayed release (DR/EC) 20 mg PO DAILY aspirin 81 mg capsule 81 mg PO DAILY fluoxetine 20 mg capsule 20 mg PO DAILY rosuvastatin [Crestor] 20 mg tablet 20 mg PO DAILY Primary Care Provider: Ji Ellison Referrals: Ji Ellison, [facility] [employer] [facility] [Primary Care Provider, Internal Medicine] Activity Restrictions/Additional Instructions: Follow-up with your primary care physician within the next 3 to 5 days Print Language: Arabic Disposition Disposition: Home, Self Care
[2025-07-15] MEDS: 0.9% Normal Saline (1000mL) 1,000 ML 150 ML IV (21:37)
--- NOTE | 2025-07-15 21:40 | RAD_ITS ---
PROCEDURE: CHEST 1 VIEW (PORTABLE) 07/15/2025 REASON FOR EXAM: CHEST PAIN TECHNIQUE: Frontal view of the chest. FINDINGS: No focal consolidation. No pleural effusion or pneumothorax. Cardiac silhouette is within normal limits. No acute fractures. RAD/Chest 1 View (Portable) IMPRESSION: No focal consolidations. Reading Location: [facility]
[2025-07-15 21:42] LABS: Hematocrit 45.7 % (40-54); Hemoglobin 15.8 g/dL (13.0-16.5); Immature Granulocytes Count 0.030 X10^3/uL (0.0-0.0); Mean Corp Hgb Conc 34.6 g/dL (32-36); Mean Corpuscular Volume 86.1 fL (80-94); Mean Platelet Vol. 8.7 fl (6.2-12.0); NRBC Flagged by Analyzer 0 % (0-5); Platelet Count 249 K/mm3 (150-450); RBC Distribution Width CV 12.3 % (11.6-14.6); RBC Distribution Width SD 38.8 fl (35.1-43.9); Red Blood Count 5.31 M/mm3 (4.6-6.2); White Blood Count 9.9 K/mm3 (4.4-11.0)
--- OUTSIDE RECORDS SUMMARY | 2025-07-15 21:59 | XMS RPT_ITS | CCD ---
Author Organization [facility] Care Team Providers Care Music [employer] Name Role Phone [place] [place] Primary Care Provider Dr. Shayne Gonsales Attending Provider WILVER EDWARD Referring Provider WILVER Quijano Other Provider Dr. Stephen Mcdonald Attending Provider Dr. Stephen Mcdonald Referring Provider Thompson Nino Attending Unavailable Ji Ellison Primary Care [facility] Primary Care Physician REFERRINGALMA DELIA Attending Unavailable [facility] Primary Care Unavailable Medications Current Medications Medication Drug Class(es) Dates Sig (Normalized) Sig (Original) hydrocortisone 25 mg/ml rectal cream (1 source) Corticosteroid Start: 01-15-2021 apply 1 dose rectal route twice daily hydrocortisone 2.5% rectal cream with applicator Apply 1 bong, Rectal, BID, 0 Refill(s) Start Date: 01/15/21 Status: Ordered Medication Dispense Status: Completed Total Allowed Fills: 1 Fills Dispensed: 0 mirtazapine 30 mg oral tablet (1 source) Start: 05-30-2019 mirtazapine 30 mg oral tablet Dose : 30 mg = 1 tab(s), Oral, qHS, # 30 tab(s), 0 Refill(s) Start Date: 05/30/19 Status: Ordered Medication Dispense Status: Completed Quantity: 30.0 Unit: tab(s) Total Allowed Fills: 1 Fills Dispensed: 0 Completed/Discontinued Medications Medication Drug Class(es) Dates Sig (Normalized) Sig (Original) acetaminophen 325 mg / HYDROcodone bitartrate 5 mg oral tablet (3 sources) Opioid Agonist Start: 05-16-2020 End: 05-19-2020 take 1 tablet by mouth every six hours as needed Hydrocodone-Aceta minophen Discontinued 1 TABLET PO EVERY 6 HOURS NEEDED 12 May 16, 2020 May 19, 2020 12:03am cephalexin 500 mg oral capsule (3 sources) Cephalosporin Antibacterial Start: 02-22-2021 End: 11-24-2023 take 500 mg by mouth every six hours Cephalexin Discontinued 500 MG PO EVERY 6 HOURS February 22, 2021 12:00am November 24, 2023 1:15pm ondansetron 4 mg disintegrating oral tablet (3 sources) Serotonin-3 Receptor Antagonist Start: 05-16-2020 End: 11-24-2023 take 4 mg by mouth every eight hours as needed Ondansetron Discontinued 4 MG PO EVERY 8 HOURS NEEDED May 16, 2020 12:00am November 24, 2023 1:15pm Problems Problem Classification Problem Date Documented Da te Episodic/Chronic Diabetes mellitus without complication (1 source) Hyperglycemia; Translations: [Hyperglycemia, unspecified] 11-24-2023 Episodic Hemorrhoids (8 sources) Thrombosed external hemorrhoids; Translations: [Perianal venous thrombosis] 05-16-2020 Episodic Immunizations and screening for infectious disease (3 sources) Patient encounter status; Translations: [Encounter for screening for COVID-19] 11-29-2020 Episodic Other lower respiratory disease (1 source) Dyspnea; Translations: [Dyspnea, unspecified] 11-24-2023 Episodic Other lower respiratory disease (1 source) Shortness of breath; Translations: [Shortness of breath] Onset: 12-02-2023 Episodic Other non-traumatic joint disorders (1 source) Knee pain 01-15-2021 Episodic Other skin disorders (3 sources) Infection of sebaceous cyst; Translations: [Sebaceous cyst] 02-22-2021 Episodic Spondylosis; intervertebral disc disorders; other back problems (1 source) Neck pain 01-15-2021 Episodic Unclassified (1 source) Disc - unit of product usage (qualifier value) 01-15-2021 Comment on above: SPINAL DISK DEGENERA TION Unclassified (1 source) Structure of left shoulder region (body structure) 01-15-2021 Comment on above: CLAVICULAR RESTRICTI ON Results Test Name Value Interpretation Reference Range [facility]ER W/O CONTRAST RIGHT ORIGINAL EXAMINATION: MRI OF THE RIGHT SHOULDER WITHOUT CONTRAST 04/30/2025 4:56 pm TECHNIQUE: Multiplanar multisequence MRI of the right shoulder was performed without the administration of intravenous contrast. COMPARISON: Radiograph dated 07/03/2024 HISTORY: ORDERING SYSTEM PROVIDED HISTORY: Reason for Exam: rt shoulder pain Preop MRI for upcoming right shoulder arthroscopy FINDINGS: There is no evidence of acute fracture, osteonecrosis or suspicious marrow lesion. Moderate AC joint degenerative change with capsular hypertrophy. Small undersurface spur of the distal clavicle. Small AC joint effusion with trivial subacromial fluid, likely reactive.. A type 1 acromial undersurface is seen. The coracoclavicular and coracoacromial ligaments are intact. Supraspinatus tendinosis with partial undersurface tear of the anterior 3rd tendon measuring approximately 0.8 cm. The infraspinatus is intact. Teres minor is intact. Mild subscapularis tendinosis. The long head of the biceps tendon is maintained in anatomic location, without tear. There is trivial biceps tenosynovitis. There is no acute Hill-Sacks or Bankart lesion. Suboptimal evaluation labrum with lack of intra-articular contrast. Within limitations there is increased T2 fluid type signal involving the superior and posterosuperior/post erior chondrolabral junction for example on series 9, image 10 and series 8 images 13 through 15. As well this is seen on axial T2 weighted imaging with a fluid cleft at the posterosuperior chondrolabral junction extending to the level of the equator. No high-grade chondral lesions are present in the glenohumeral joint. There is some chondral thinning of the humeral head. There is no glenohumeral joint effusion or synovitis. The suprascapular and spinoglenoid notches as well as the quadrilateral space have preserved fat planes. There is no evidence of muscle atrophy or acute muscle denervation. IMPRESSION: 1. Supraspinatus tendinosis with partial undersurface tear of the anterior 3rd tendon measuring approximately 0.8 cm. Mild subscapularis tendinosis. 2. Suboptimal evaluation of the labrum with lack of intra-articular contrast. Within limitations there suggestion of superior labral tear with posterior extension to the level of the equator. The anterior extent is not well visualized with lack of intra-articular contrast. Consider correlation with MR arthrogram as clinically warranted. 3. Moderate AC joint degenerative change with small undersurface spur of the distal clavicle. Small AC joint effusion with trivial subacromial fluid, likely reactive. 4. Trivial biceps tenosynovitis. Interpreted by: Rossy Marino Preliminary Report By: Rossy Marino Electronically signed By Rossy Marino Dictated Date: 05/01/2025 9:24:05 AM Prelim Date: 05/01/2025 9:35:01 AM Sign Date: 05/01/2025 9:35:01 AM Ordering Provider: ALMA DELIA TINEO [facility] 12 Lead EKGon 11-24-2023 12 Lead EKG [facility] Cardiovascular Services [address] [place] [address] 12 Lead EKG 11/24/23 1100 MR#: [id number] Acct: [id number] Name: EVAN HART Rep #: [id number] : 1970 53 From: Omar Agudelo MD Attending Dr: Status: DEP ER Ordering Dr: Thompson Nino DO Date: 11/24/23 Location: ED Sex: M C Admitted: Test Reason : SOB/CP Blood Pressure : / mmHG Vent. Rate : 061 BPM Atrial Rate : 061 BPM P-R Int : 128 ms QRS Dur : 086 ms QT Int : 412 ms P-R-T Axes : 048 031 061 degrees QTc Int : 414 ms Sinus rhythm with Premature atrial complexes Otherwise normal ECG Confirmed by OMAR AGUDELO MD ([id number]), visual effects editor NORRIS CARREON ([id number]) on 11/25/2023 11:34:11 AM Referred By: ES/ Confirmed By:OMAR AGUDELO MD 11/25/23 1134 Date Omar Agudelo MD CC: Dr. Thompson Nino, ; Ji Ellison Signed Normal [facility] Absolute lymphocyte countOrd ered By: Thompson Nino on 05-01-2024 Lymphocytes Auto (Unsp spec) [#/Vol] 2.11 10*3/uL 0.83-4.51 [facility] Automated lymphocyte count a s percentage of total leukocytesOrdered By: Thompson Nino on 11-24-2023 Lymphocytes/100 WBC Auto (Unsp spec) 22.1 % 19-41 [facility] Basic Metabolic Profile (BMP )on 11-24-2023 BUN/CRE 13.8 RATIO Normal 10-20 [facility] Comment on above: Order Comment: 'TROP ' Serial specimen #1, #2 or #3: 1 Performed By: #### L 500.2500, L100.0100, L300.8000, L501.4020 #### [facility] [address] [place], [address] CA,Total 8.9 mg/dL Normal 8.5-10.1 [facility] Comment on above: Order Comment: 'TROP ' Serial specimen #1, #2 or #3: 1 Performed By: #### L 500.2500, L100.0100, L300.8000, L501.4020 #### [facility] [address] [place], [address] Chloride [Moles/Vol] 106 mmol/L Normal 98-107 [facility] Comment on above: Order Comment: 'TROP ' Serial specimen #1, #2 or #3: 1 Performed By: #### L 500.2500, L100.0100, L300.8000, L501.4020 #### [facility] [address] [place], [address] CO2 [Moles/Vol] 28.0 mmol/L Normal 21.0-32.0 [facility] Comment on above: Order Comment: 'TROP ' Serial specimen #1, #2 or #3: 1 Performed By: #### L 500.2500, L100.0100, L300.8000, L501.4020 #### [facility] [address] [place], [address] Creatinine [Mass/Vol] 1.16 mg/dL Normal 0.70-1.30 [facility] Comment on above: Order Comment: 'TROP ' Serial specimen #1, #2 or #3: 1 Result Comment: The validity of the calculated GFR GFRAA in patients over 70 years has not been determined. Clinical correlation is essential. Performed By: #### L 500.2500, L100.0100, L300.8000, L501.4020 #### [facility] [address] [place], [address] ECRCL 70.44 ml/min Normal [facility] Comment on above: Order Comment: 'TROP ' Serial specimen #1, #2 or #3: 1 Performed By: #### L 500.2500, L100.0100, L300.8000, L501.4020 #### [facility] [address] [place], [address] EST GFR - AA 85 mL/min Normal >60 [facility] Comment on above: Order Comment: 'TROP ' Serial specimen #1, #2 or #3: 1 Result Comment: Afri can Palauan GFR Calc Performed By: #### L 500.2500, L100.0100, L300.8000, L501.4020 #### [facility] [address] [place], [address] GAP 5 Normal 5-15 [facility] Comment on above: Order Comment: 'TROP ' Serial specimen #1, #2 or #3: 1 Performed By: #### L 500.2500, L100.0100, L300.8000, L501.4020 #### [facility] [address] [place], [address] GFR/1.73 sq M.predicted among non-blacks MDRD (S/P/Bld) [Vol rate/Area] 70 mL/min/{1.73_m2} Normal >60 [facility] Comment on above: Order Comment: 'TROP ' Serial specimen #1, #2 or #3: 1 Result Comment: Non- GFR Calc Performed By: #### L 500.2500, L100.0100, L300.8000, L501.4020 #### [facility] [address] [place], [address] Glucose [Mass/Vol] 203 mg/dL High 74-106 [facility] Comment on above: Order Comment: 'TROP ' Serial specimen #1, #2 or #3: 1 Result Comment: Gluc ose result greater than or equal to 200 mg/dL suggests DIABETES MELLITUS per A.D.A. criteria. Performed By: #### L 500.2500, L100.0100, L300.8000, L501.4020 #### [facility] [address] [place], [address] Potassium [Moles/Vol] 3.9 mmol/L Normal 3.5-5.1 [facility] Comment on above: Order Comment: 'TROP ' Serial specimen #1, #2 or #3: 1 Performed By: #### L 500.2500, L100.0100, L300.8000, L501.4020 #### [facility] [address] [place], [address] Sodium [Moles/Vol] 139 mmol/L Normal 136-145 [facility] Comment on above: Order Comment: 'TROP ' Serial specimen #1, #2 or #3: 1 Performed By: #### L 500.2500, L100.0100, L300.8000, L501.4020 #### [facility] [address] [place], [address] Urea nitrogen [Mass/Vol] 16 mg/dL Normal 7-18 [facility] Comment on above: Order Comment: 'TROP ' Serial specimen #1, #2 or #3: 1 Performed By: #### L 500.2500, L100.0100, L300.8000, L501.4020 #### [facility] [address] [place], [address] Basophil percentageOrdered B y: Thompson Nino on 11-24-2023 Basophils/100 WBC (Bld) 0.3 % 0-1 [facility] Chloride [Moles/Vol] 106 mmol/L 98-107 [facility] Eosinophils/100 WBC (Bld) 0.2 % 0-5 [facility] Glucose [Mass/Vol] 203 mg/dL 74-106 [facility] Comment on above: Glucose result great er than or equal to 200 mg/dLsuggests DIABETES MELLITUS per A.D.A. criteria. Hemoglobin (Bld) [Mass/Vol] 16.2 g/dL 13.0-16.5 [facility] Monocytes/100 WBC (Bld) 5.1 % 0-10 [facility] Neutrophils (Bld) [#/Vol] 6.9 10*3/uL 2.0-7.7 [facility] Neutrophils/100 WBC (Bld) 71.8 % 47-70 [facility] Potassium [Moles/Vol] 3.9 mmol/L 3.5-5.1 [facility] Sodium [Moles/Vol] 139 mmol/L 136-145 [facility] WBC (Bld) [#/Vol] 9.6 10*3/uL 4.4-11.0 [facility] CBC W/Diff, Automatedon Absolute Lymph 2.11 X10 3/uL Normal 0.83-4.51 [facility] Comment on above: Performed By: #### L 500.2500, L100.0100, L300.8000, L501.4020 #### [facility] [address] [place], [address] Absolute Neut 6.9 X10 3/uL Normal 2.0-7.7 [facility] Comment on above: Performed By: #### L 500.2500, L100.0100, L300.8000, L501.4020 #### [facility] [address] [place], [address] Basophils/100 WBC (Bld) 0.3 % Normal 0-1 [facility] Comment on above: Performed By: #### L 500.2500, L100.0100, L300.8000, L501.4020 #### [facility] [address] [place], [address] Eosinophils/100 WBC (Bld) 0.2 % Normal 0-5 [facility] Comment on above: Performed By: #### L 500.2500, L100.0100, L300.8000, L501.4020 #### [facility] [address] [place], [address] Erythrocyte distribution width (RBC) [Ratio] 12.6 % Normal 11.6-14.6 [facility] Comment on above: Performed By: #### L 500.2500, L100.0100, L300.8000, L501.4020 #### [facility] [address] [place], [address] Hematocrit (Bld) [Volume fraction] 47.8 % Normal 40-54 [facility] Comment on above: Performed By: #### L 500.2500, L100.0100, L300.8000, L501.4020 #### [facility] [address] [place], [address] Hemoglobin (Bld) [Mass/Vol] 16.2 g/dL Normal 13.0-16.5 [facility] Comment on above: Performed By: #### L 500.2500, L100.0100, L300.8000, L501.4020 #### [facility] [address] [place], [address] IG% 0.500 Normal 0.0-0.9 [facility] Comment on above: Result Comment: IG% - Immature Granulocytes (promyelocytes, myelocytes and metamyelocytes) > 1% indicates that a LEFT SHIFT is Present. Performed By: #### L 500.2500, L100.0100, L300.8000, L501.4020 #### [facility] [address] [place], [address] Lymphocytes/100 WBC (Bld) 22.1 % Normal 19-41 [facility] Comment on above: Performed By: #### L 500.2500, L100.0100, L300.8000, L501.4020 #### [facility] [address] [place], [address] MCH (RBC) [Entitic mass] 29.6 pg Normal 27.0-32.0 [facility] Comment on above: Performed By: #### L 500.2500, L100.0100, L300.8000, L501.4020 #### [facility] [address] [place], [address] MCHC (RBC) [Mass/Vol] 33.9 g/dL Normal 32-36 [facility] Comment on above: Performed By: #### L 500.2500, L100.0100, L300.8000, L501.4020 #### [facility] [address] [place], [address] MCV (RBC) [Entitic vol] 87.4 fL Normal 80-94 [facility] Comment on above: Performed By: #### L 500.2500, L100.0100, L300.8000, L501.4020 #### [facility] [address] [place], [address] Monocytes/100 WBC (Bld) 5.1 % Normal 0-10 [facility] Comment on above: Performed By: #### L 500.2500, L100.0100, L300.8000, L501.4020 #### [facility] [address] [place], [address] Neutrophils/100 WBC (Bld) 71.8 % High 47-70 [facility] Comment on above: Performed By: #### L 500.2500, L100.0100, L300.8000, L501.4020 #### [facility] [address] [place], [address] Nucleated RBC (Bld) [#/Vol] 0 10*3/uL Normal 0-5 [facility] Comment on above: Performed By: #### L 500.2500, L100.0100, L300.8000, L501.4020 #### [facility] [address] [place], [address] Platelet mean volume (Bld) [Entitic vol] 9.1 fL Normal 6.2-12.0 [facility] Comment on above: Performed By: #### L 500.2500, L100.0100, L300.8000, L501.4020 #### [facility] [address] [place], [address] Platelets (Bld) [#/Vol] 258 10*3/uL Normal 150-450 [facility] Comment on above: Performed By: #### L 500.2500, L100.0100, L300.8000, L501.4020 #### [facility] [address] [place], [address] RBC (Bld) [#/Vol] 5.47 10*6/uL Normal 4.6-6.2 [facility] Comment on above: Performed By: #### L 500.2500, L100.0100, L300.8000, L501.4020 #### [facility] [address] [place], [address] RDW SD 40.1 fl Normal 35.1-43.9 [facility] Comment on above: Performed By: #### L 500.2500, L100.0100, L300.8000, L501.4020 #### [facility] [address] [place], [address] WBC (Bld) [#/Vol] 9.6 10*3/uL Normal 4.4-11.0 [facility] Comment on above: Performed By: #### L 500.2500, L100.0100, L300.8000, L501.4020 #### [facility] [address] [place], [address] Chest PA and Lateralon 11-23 Chest PA and Lateral [facility] Imaging Services [address] [place] [address] Chest PA and Lateral MR#: [id number] Acct: [id number] Name: EVAN HART Rep #: [id number] : 1970 M 53 From: Jose Love MD PCP: Ji Ellison Status: [facility] ER Study: Chest PA and Lateral Date of Exam: 11/24/23 Exam# [id number] Ordering Dr: Thompson Nino DO [id number] STUDY: X-RAY CHEST REASON FOR EXAM: Male, 53 years old. Dyspnea. TECHNIQUE: Frontal and lateral views of the chest. COMPARISON: None. FINDINGS: The lungs are clear and expanded. There is no demonstrated pleural abnormality. Normal size heart. Normal mediastinum and amanda. Normal visualized pulmonary arteries. Normal visualized aortic arch and descending thoracic aorta. Normal visualized thoracic spine. Normal visualized ribs, clavicles, and shoulders. No abnormality of the visualized soft tissue structures of the upper abdomen. RAD/Chest PA and Lateral IMPRESSION: Normal x-ray examination of the chest. Electronically Signed: Jose Love MD at 13:51 EDT , CC: Dr. Thompson Nino DO; Ji Perry NP-C Scot Director Of Creative Services: Signed Normal [facility] D-Dimer Quantitative (DVT/PE )on 11-24-2023 D-DIMER QUANT < 0.27 Low 0.27-0.49 [facility] Comment on above: Result Comment: NORM AL D-Dimer level (<0.50) indicates no DVT or PE. Performed By: #### L 500.2500, L100.0100, L300.8000, L501.4020 #### [facility] [address] [place], [address] Determination of erythrocyte mean corpuscular volume (MCV)Ordered By: Thompson Nino on 11-24-2023 MCV (RBC) [Entitic vol] 87.4 fL 80-94 [facility] Emergency Department Summary on 11-24-2023 Emergency Department Summary [facility] Medical Records Department [address] [place] [address] Emergency Department Summary 11/24/23 MR#: [id number] Acct: [id number] Name: EVAN HART Rep #: [id number] : 1970 53 From: Thompson Nino DO PCP: Ji Ellison Status:DEP ER Location: ED HPI History of Present Illness Chief Complaint: Shortness of Breath Informant: patient Onset/Context/Timing Onset: Days (5) Context: sudden Timing: Intermittent Quality: Positive for Dyspnea on exertion Worsened by: Exertion Relieved by: Nothing Associated Symptoms cough and post nasal drip; Negative for rhinorrhea, ear pain, fever, sore throat, chills, sweats, clear sputum, white sputum, yellow sputum or green sputum Chest Pain: Positive for Tightness Narrative Narrative: Patient presents with shortness of breath that has been getting worse over the past 5 days. Patient states it is worse with any exertion. Patient states it is better when he is able to sit up. Patient states he has been having some postnasal drainage. Patient admits to a cough but denies any sputum production. Patient denies any fevers or chills. Patient states he also has some tightness through his chest. Patient denies any sick contacts. Patient denies any nausea or vomiting. PE Risk Factors: Negative for Cancer, OCP + Smoking + > 35, Prior DVT or PE, Recent immobilization, Recent surgery or Recent travel [facility] Medical History (Updated 11/24/23 @ 14:[address] Thompson Nino DO) Anxiety Hyperlipemia Allergy/AdvReac Type Severity Reaction Status Date / Time No Known Allergies Allergy Verified 11/24/23 10:58 Family History (Updated 11/24/23 @ 11:54 by Yanni Liu) Mother Heart disease Surgical History (Updated 11/24/23 @ 14:[address] Thompson Nino DO) Hx of repair of rotator cuff Social History household members: family housing: house current occupational status: employed Smoking Status: Current every day smoker tobacco type: cigarettes substance use type: does not use ROS ROS ED Constitutional Constitutional ED: Denies chills or fever(s) Eyes Eyes: Denies blurry vision or change in vision ENT ENT ED: Denies rhinorrhea or sore throat Cardiovascular Cardiovascular: Reports chest pain; Denies palpitations Respiratory/Chest Respiratory/Chest: Reports dyspnea; Denies cough Gastrointestinal Gastrointestinal: Denies nausea or vomiting Genitourinary Genitourinary ED: Denies dysuria or hematuria Musculoskeletal Musculoskeletal: Reports back pain and neck pain Integumentary Denies abscess or rash Neurologic Neurologic: Denies headache(s) or weakness Allergic/Immunologic Allergic/Immunologic ED: Denies mouth swelling or urticaria EXAM Physical Exam Const Vital Signs: 11/24/23 10:55 11/24/23 11:55 Temperature 97.8 F Temperature Source Temporal Pulse Rate 70 Respiratory Rate 18 Respiratory Effort Normal Non-Labored Respiratory Pattern Normal Blood Pressure 149/85 H Blood Pressure Mean 106 Pulse Ox 98 Oxygen Delivery Method Room Air Positive well nourished and well developed General Appearance ED: well developed and NAD HEENT Reports moist mucous membranes Neck supple and no JVD Resp normal respiratory effort and clear to auscultation bilaterally Cardio regular rate and regular rhythm GI non-tender and non-distended Palpation: soft Extremity normal to inspection General Extremety ED: Negative for edema or tenderness General Extremity: Negative for edema Neuro oriented x3, CN's II-XII intact bilaterally and no sensory deficits noted [place] Coma Scale: document GCS findings Spontaneous Obeys Commands Oriented 15 Sensorium / Orientation: alert Speech: speech normal Motor Exam: strength 5/5 throughout Psych mental status grossly normal Skin no wounds MDM MDM MDM Narrative Medical decision making narrative: Differential diagnosis includes pulmonary embolism, pneumonia, viral illness, cardiac dysrhythmia, cardiac ischemia, and anxiety. EKG will be obtained to assess for cardiac dysrhythmia and cardiac ischemia. CBC will be obtained to assess for leukocytosis and anemia. Basic metabolic profile will be obtained to assess for electrolyte abnormality and renal function. D-dimer will be obtained to assess for pulmonary embolism. COVID-19, influenza, and RSV PCR will be obtained to assess for viral illness. Chest x-ray will be obtained to assess for pneumonia. Lab Data Attestation: I reviewed the patient's lab results. Lab results narrative: CBC was reviewed and was within normal limits. Basic metabolic profile was reviewed and was within normal limits with the exception of an elevated glucose of 203. D-dimer was reviewed and (more content not included)... Normal [facility] Erythrocyte distribution wid th ratioOrdered By: Thompson Nino on 11-24-2023 Erythrocyte distribution width (RBC) [Ratio] 12.6 % 11.6-14.6 [facility] Erythrocyte distribution wid th standard deviationOrdered By: Thompsonpayton Nino on 11-24-2023 Erythrocyte distribution width (RBC) [Entitic vol] 40.1 fL 35.1-43.9 [facility] Hematocrit Auto (Bld) [Volum e fraction]Ordered By: Thompson Nino on 11-24-2023 Hematocrit (Bld) [Volume fraction] 47.8 % 40-54 [facility] Immature granulocytes/100 WB C Auto (Bld)Ordered By: Thompson Nino on 11-24-2023 Immature granulocytes/100 WBC (Bld) 0.500 % 0.0-0.9 [facility] Comment on above: IG% - Immature Granu locytes (promyelocytes, myelocytes and metamyelocytes) > 1% indicates that a LEFT SHIFT is Present. L501.4020on 11-24-2023 TROPONIN-I HS 9 pg/mL Normal 3.0-78.0 [facility] Comment on above: Order Comment: 'TROP ' Serial specimen #1, #2 or #3: 1 Result Comment: Shabbir chacon Note: New Test Units and Gender Specific Reference Ranges. For more information see Policy Stat Procedure [place] High Sensitivity Troponin (TNIH) and attachments. Performed By: #### L 500.2500, L100.0100, L300.8000, L501.4020 #### [facility] [address] [place], [address] Laboratory - Chemistry and C hemistry - challengeOrdered By: Thompson Nino on 11-24-2023 CO2 [Moles/Vol] 28.0 mmol/L 21.0-32.0 [facility] Urea nitrogen/Creatinine [Mass ratio] 13.8 mg/mg 10-20 [facility] Laboratory - Hematology and Cell countsOrdered By: Thompson Nino on 11-24-2023 MCH (RBC) [Entitic mass] 29.6 pg 27.0-32.0 [facility] MCHC (RBC) [Mass/Vol] 33.9 g/dL 32-36 [facility] Nucleated RBC/100 WBC (Bld) [Ratio] 0 % 0-5 [facility] Platelet mean volume (Bld) [Entitic vol] 9.1 fL 6.2-12.0 [facility] Platelets (Bld) [#/Vol] 258 10*3/uL 150-450 [facility] Laboratory - Microbiology an d Antimicrobial susceptibilityOrdered By: Thompson Nino on 11-24-2023 SARS-CoV-2 (COVID-19) RNA DILAN+probe Ql (Unsp spec) [facility] M100.678on 11-24-2023 M100.678 SARS-CoV-2 (COVID 19) Negative INFLUENZA A Negative INFLUENZA B Negative RSV PCR Negative Normal [facility] Comment on above: Performed By: #### M 100.678 #### [facility] [address] [place], [address] No Panel InformationOrdered By: Thompson Nino on 11-24-2023 D-Dimer Quantitative (PE/DVT) < 0.27 FEU/ug/m 0.27-0.49 [facility] Comment on above: NORMAL D-Dimer level (<0.50) indicates no DVT or PE. Estimated Creatinine Clearance Calc 70.44 ml/min [facility] Estimated GFR (MDRD) Amer 85 mL/min >60 [facility] Comment on above: GFR Calc Estimated GFR (MDRD) Non-Af Amer 70 mL/min >60 [facility] Comment on above: Non- GFR Calc Troponin I High Sensitivity 9 pg/mL 3.0-78.0 [facility] Comment on above: Please Note: New Sima t Units and Gender Specific Reference Ranges. For more information see Policy Stat Procedure [place] High Sensitivity Troponin (TNIH) and attachments. RBC Auto (Bld) [#/Vol]Ordere d By: Thompson Nino on 11-24-2023 RBC (Bld) [#/Vol] 5.47 10*6/uL 4.6-6.2 [facility] Serum or plasma calcium maira urement (mass/volume)Ordered By: Thompson Nino on 11-24-2023 Calcium [Mass/Vol] 8.9 mg/dL 8.5-10.1 [facility] Serum or plasma creatinine m easurement (mass/volume)Ordered By: Thompson Nino on 11-24-2023 Creatinine [Mass/Vol] 1.16 mg/dL 0.70-1.30 [facility] Comment on above: The validity of the calculated GFR & GFRAA in patients over 70 years has not been determined. Clinical correlation is essential. Serum or plasma urea nitroge n measurement (mass/volume)Ordered By: Thompson Nino on 11-24-2023 Urea nitrogen [Mass/Vol] 16 mg/dL 7-18 [facility] Thin prep Papanicolaou smear with manual screeningOrdered By: Thompson Nino on 11-24-2023 Thin prep Papanicolaou smear with manual screening 5 5-15 [facility] Vital Signs Date Time Vital Sign Value Performing Clinician Espinoza litleigh 11-24-2023 15:17-0400 Body temperature 97.7 [degF] [facility] 11-24-2023 15:17-0400 Diastolic blood pressure 84 mm[Hg] [facility] 11-24-2023 15:17-0400 Heart rate 54 /min [facility] 11-24-2023 15:17-0400 Respiratory rate 18 /min [facility] 11-24-2023 15:17-0400 SaO2% (BldA) [Mass fraction] 97 % [facility] 11-24-2023 15:17-0400 Systolic blood pressure 129 mm[Hg] [facility] 11-24-2023 10:55-0400 Body height 170.[address] [facility] 11-24-2023 10:55-0400 Body mass index (BMI) [Ratio] 27.3 kg/m2 [facility] 11-24-2023 10:55-0400 Body weight 79.[address] [facility] Encounters Encounter Date Encounter Type Care Provider Facility Start: 04-30-2025 End: 04-30-2025 ambulatory PHY WO ID REFERRING Facility:[facility] Start: 04-30-2025 End: 04-30-2025 Patient encounter procedure PHY WO ID REFERRING [facility] Start: 11-24-2023 End: 11-24-2023 Emergency department patient visit Thompson Nino Facility:[facility] Start: 11-24-2023 End: 11-24-2023 Emergency department patient visit [facility] Work Phone: Start: 01-22-2022 Non-patient / Non-visit [facility] Start: 01-22-2022 End: 01-22-2022 Patient encounter procedure [facility] Start: 01-21-2022 Non-patient / Non-visit [facility] Start: 01-20-2022 End: 01-20-2022 Patient encounter procedure [facility] Start: 01-20-2022 Non-patient / Non-visit [facility] Procedures Date Procedure Procedure Detail Performing Clinician Start: 11-24-2023 SARS-CoV-2, Influenz a & RSV (PCR) Start: 11-24-2023 Plain chest X-ray Finger structure (mariann dy structure) [facility] Comment on above: RIGHT INDEX FINGER, RECONSTRUCTION Hemorrhoids (disorder) [facility] R EF[facility] Comment on above: I&D THROMBOSED HEMOR RHOID Shoulder region stru cture (body structure) [facility] Comment on above: LEFT ROTATOR CUFF Plan of Treatment Date Care Activity Detail Author Start: 11-24-2023 [facility] Start: 11-24-2023 [facility] Patient Education ED Dyspnea ED Hyperglycemia New Poss Diabetes [facility] Work Phone: Patient referral [facility] Work Phone: Payers Date Payer Category Payer [employer] ( and others) [id number] 2023 Self-pay [id number] 2021 Private Health Insurance [id number] c 1970 Unknown [id number] Unknown [id number] Unknown [id number] Social History Date Type Detail Facility Start: 02-22-2021 End: 11-24-2023 Tobacco smoking status NHIS Unknown if ever smoked [facility] Start: 05-16-2020 Spouse/ Signif icant Other [facility] Start: 1970 Sex Assigned At Male W [facility] Start: 05-30-2019 Tobacco smoking status Light t obacco smoker (finding) [facility] Sexual Orientation [facility] heathertal [facility] Start: 05-30-2019 Sex Male (finding) [facility] Discharge instructions 11-24-2023 Note Date & Type Note Facility 11-24-2023 Hospital Discharg e instructions Additional Instructions Your blood sugar today was elevated at 203. Continue to monitor this with your primary care physician. This could indicate new onset diabetes. [facility] Work Phone: Evaluation + Plan note Note Date & Type Note Facility Evaluation + Plan note No data available for this section [facility] Evaluation note Note Date & Type Note Facility Evaluation note No assessment information availa [facility] Work Phone: Hospital Discharge instructions Note Date & Type Note Facility Hospital Discharge instructions No data available for this section [facility] Progress note Note Date & Type Note Facility Progress note No data available for this section [facility] Chief Complaint and Reason for Visit Chief Complaint SOB, ISCHEMIC HEART DISEASE SOB, ISCHEMIC HEART DISEASE SOB, ISCHEMIC HEART DISEASE SOB, ISCHEMIC HEART DISEASE Chief Complaint SOB Family History No Family History Records Found Relationship Condition Age at Onset Recorded Date/T ryan Unknown Family History?No pe rtinent history Unknown May 16, 2020 12:25pm Family History?No pe rtinent history Unknown May 16, 2020 12:25pm Relationship Condition Age at Onset Recorded Date/T ryan mother Heart disease Unknown Advance Directives No Advanced Directives Records Found Advance Directive Response Recorded Date/ Time Living Will No February 22, 2021 9:45pm Power of Access Lead No February 22 9:45pm Advance Directive Response Recorded Date/ Time Living Will No November 24, 2023 11 :55am Power of Access Lead No November 24, 2023 11:55am Summary Purpose Additional Source Comments Goals (unrecognized section and content) Goals may be documented in a n alternate sectionGoals may be documented in an alternate section No data available for this section Care Teams (unrecognized sec tion and content) Team Status: Active Member Role Status Dates [place] [employer] [place] , [employer] Primary Care Provider Act adam Team Status: Inactive Member Role Status Dates Dr. Thompson Nino , DO Emergency Provider Active [place] [employer] [place] , [employer] PERSON[employer]C Primary Care Provider Act adam (unrecognized sect ion and content) No Status Records FoundNo Status Records Found INFORMATION SOURCE (unrecogn ized section and content) DATE CREATED AUTHOR 12/04/2023 [facility] DATE CREATED AUTHOR 'S ORGANIZ ATION 05/03/2025 [facility] FOR RECORDS PERTAINING TO PATIENTS WHO ARE OR HAVE BEEN ENROLLED IN A CHEMICAL DEPENDENCY/SUBSTANCEABUSE PROGRAM, SOME INFORMATION MAY BE OMITTED. This clinical summary was aggregated from multiple sources. Caution should be exercised in using it in the provision of clinical care. This summary normalizes information from multiple sources, and as a consequence, information in this document may materially change the coding, format and clinical context of patient data. In addition, data may be omitted in some cases. CLINICAL DECISIONS SHOULD BE BASED ON THE PRIMARY CLINICAL RECORDS. [facility] [employer] [facility]. provides no warranty or guarantee of the accuracy or completeness of information in this document.
[2025-07-15 22:06] LABS: Anion Gap 12 (5-15); BUN 17 mg/dL (4-19); BUN/Creat Ratio 14.6 RATIO (10-20); Calcium,Total 9.0 mg/dL (7.6-11.0); Carbon Dioxide 22.7 mmol/L (21.0-32.0); Chloride 104 mmol/L (98-108); Estimated Creatinine Clearance 76.29 ml/min (50-250); Glucose 152 mg/dL (70-99); Potassium 4.0 mmol/L (3.3-5.1); Troponin T High Sensitivity 8 ng/L (<=22)
[2025-07-15 22:08] LABS: D-Dimer Quantitative (DVT/PE) < 0.27 FEU/ug/m (0.27-0.49)
[2025-07-15 22:20] VITALS: BP 120/70; PULSE 65; RESP 21; O2SAT 92
[2025-07-15 22:39] VITALS: BP 120/70; PULSE 65; RESP 16; TEMP 36.7; O2SAT 92
== END 2025-07-15 22:54 | disposition home or self-care (01) ==
PROVIDERS: Emergency Provider Emergency Medicine; PCP Nurse Practitioner; Visit Provider Emergency Medicine
DX: R07.9 Chest pain, unspecified (principal); F41.9 Anxiety disorder, unspecified; I25.2 Old myocardial infarction; F17.210 Nicotine dependence, cigarettes, uncomplicated; E78.5 Hyperlipidemia, unspecified; Z63.79 Other stressful life events affecting family and household; Z79.82 Long term (current) use of aspirin; Z79.899 Other long term (current) drug therapy; R06.00 Dyspnea, unspecified
CPT/HCPCS: 71045; 80048; 84484; 85025; 85379; 93005; 96361; 96374; 99283; A4216